=== PATIENT | male | born 1980 | race Caucasian/White ===

== ENCOUNTER 2017-12-30 20:49 | Emergency (ER) | payer BC ==
--- NOTE | 2017-12-30 22:04 | RAD ---
RIGHT FOOT THREE VIEWS: 12/30/17 HISTORY: Foot pain. Joint spaces appear well preserved. There is no fracture or other bony findings. IMPRESSION: Unremarkable right foot. POS: [facility]
== END 2017-12-30 21:28 | disposition home or self-care (01) ==
LOC: SCSER 20:49
DX: L84 Corns and callosities (principal); F17.220 Nicotine dependence, chewing tobacco, uncomplicated